=== PATIENT | female | born 1970 | race Caucasian/White ===

== ENCOUNTER 2023-03-25 16:24 | Inpatient (IN) | payer OTHER ==
[~2023-03-25] VITALS: Ht 167.6 cm; Wt 99.5 kg
[~2023-03-25 16:24] MED LIST: ANTI DEPRESSANT MED; BP MEDS; THYROID MEDS
[2023-03-25 16:31] VITALS: O2SAT 100
[2023-03-25] MEDS ORDERED: MORPHINE SULFATE 2 MG/ML CPJ (NOT FOR IM USE) IV ONE (17:00)
[2023-03-25] MEDS ORDERED: NITROGLYCERIN 0.4MG TABLET SL SL ONE (17:00)
[2023-03-25] MEDS ORDERED: SODIUM CHLORIDE 0.9% 1,000 ML IV ONE (17:00)
[2023-03-25 17:13] LABS: BASOPHILS % 0.8 % (0.0-2.0); EOSINOPHILS % 1.1 % (0.0-5.0); HEMATOCRIT. 42.4 % (36.0-48.0); HEMOGLOBIN. 14.5 g/dL (12.0-16.0); LYMPHOCYTES % 29.3 % (20.0-50.0); MEAN CORPUSCULAR HEMOGLOBIN 30.5 pg (28.0-32.0); MEAN CORPUSCULAR HGB CONC 34.2 g/dL (31.0-37.0); MEAN CORPUSCULAR VOLUME 89.4 fL (81.0-99.0); MEAN PLATELET VOLUME 8.7 fl (7.4-10.4); MONOCYTES % 9.9 % (2.0-8.0); NEUTROPHILS % 58.9 % (40.0-76.0); PLATELET 271 x1000/uL (130-400); RED BLOOD CELL COUNT 4.74 mill/uL (4.2-5.4); RED CELL DISTRIBUTION WIDTH 13.1 % (11.6-14.6); WHITE BLOOD COUNT 10.9 x1000/uL (4.5-11.0)
[2023-03-25 17:24] LABS: CHLORIDE 106 mEq/L (98-107); INDEX HEMOLYSI 1 (1-3); INDEX ICTERIC 1 (1-4); INDEX LIPEMIC 1 (1-3); POTASSIUM 3.8 mEq/L (3.5-5.1); SODIUM 138 mEq/L (136-145)
[2023-03-25 17:42] LABS: ALANINE AMINOTRANSFERASE 51 IU/L (13-61); ALBUMIN 3.5 g/dL (3.4-5.0); ASPARTATE AMINOTRANSFERASE 35 IU/L (15-37); BILIRUBIN TOTAL 0.5 mg/dL (0.1-1.0); CALCIUM 8.8 mg/dL (8.5-10.1); CARBON DIOXIDE 24 mEq/L (21-32); CREATININE 0.6 mg/dL (0.6-1.3); GLUCOSE 200 mg/dL (70-105); NT PRO B-TYPE NATRIURETIC PEP 72 pg/mL (5-125); PROTEIN TOTAL 7.4 g/dL (6.0-8.3); THYROID STIMULATING HORMONE 0.19 uIU/mL (0.36-3.74); TROPONIN I HIGH SENSITIVITY 10 ng/L (<54); UREA NITROGEN BLOOD 10 mg/dL (7-21)
[2023-03-25 19:59] LABS: TROPONIN I HIGH SENSITIVITY 12 ng/L (<54)
[2023-03-25 21:25] VITALS: BP 138/59; PULSE 90; RESP 18; TEMP 97.1
[2023-03-25] MEDS ORDERED: CLON0.2T PO (21:47)
[2023-03-25] MEDS ORDERED: ASPI-1497 MT (21:47)
[2023-03-25] MEDS ORDERED: NAPR-681 PO (21:47)
[2023-03-25] MEDS ORDERED: HYDR-3735 PO (21:47)
[2023-03-25] MEDS ORDERED: AMIT10TA6 PO (21:47)
[2023-03-25] MEDS ORDERED: AMLO10TA80 PO (21:47)
[2023-03-25] MEDS ORDERED: ATEN100T PO (21:47)
[2023-03-25] MEDS ORDERED: ESCI-7 PO (21:47)
[2023-03-25] MEDS ORDERED: LEVO150T8 PO (21:47)
[2023-03-25] MEDS ORDERED: METF-416 PO (21:47)
[2023-03-25] MEDS ORDERED: ATOR20TA65 PO (21:47)
[2023-03-25] MEDS ORDERED: DEXTROSE 50% WATER 50ML SYRINGE IV PRN (22:30)
[2023-03-25] MEDS ORDERED: CLONIDINE 0.1MG TABLET PO PRN (22:30)
[2023-03-25] MEDS ORDERED: HYDROXYZINE 25MG TABLET PO PRN (22:30)
[2023-03-25] MEDS ORDERED: ZOLPIDEM TARTRATE 5MG TABLET PO PRN (22:30)
[2023-03-25] MEDS ORDERED: ATORVASTATIN CALCIUM 40MG TABLET PO SCH (23:00)
[2023-03-25] MEDS: ACETAMINOPHEN 325MG TABLET PO PRN (23:11)
[2023-03-25] MEDS: METOPROLOL TARTRATE 50MG TABLET PO SCH (23:11)
[2023-03-25] MEDS: ENOXAPARIN 30MG/0.3ML SYR SUBCUT SCH (23:11)
[2023-03-26] VITALS: BP 117/63; PULSE 86; RESP 18; TEMP 97.9
[2023-03-26] MEDS ORDERED: AMITRIPTYLINE 50MG TABLET PO SCH
[2023-03-26 04:00] VITALS: BP 137/66; PULSE 80; RESP 18; TEMP 97.9
[2023-03-26] MEDS: INSULIN LISPRO 100 UNITS/ML SUBCUT SCH ×2 (06:37→12:48)
[2023-03-26] MEDS: BLOOD SUGAR DIAGNOSTIC STRIP TEST SCH ×2 (06:37→12:36)
[2023-03-26 07:23] LABS: BASOPHILS % 0.6 % (0.0-2.0); HEMOGLOBIN. 13.8 g/dL (12.0-16.0); LYMPHOCYTES % 35.4 % (20.0-50.0); MEAN CORPUSCULAR HEMOGLOBIN 30.8 pg (28.0-32.0); MEAN CORPUSCULAR HGB CONC 34.4 g/dL (31.0-37.0); MEAN CORPUSCULAR VOLUME 89.7 fL (81.0-99.0); MEAN PLATELET VOLUME 9.4 fl (7.4-10.4); MONOCYTES % 11.4 % (2.0-8.0); NEUTROPHILS % 50.6 % (40.0-76.0); PLATELET 230 x1000/uL (130-400); RED BLOOD CELL COUNT 4.46 mill/uL (4.2-5.4); RED CELL DISTRIBUTION WIDTH 13.1 % (11.6-14.6); WHITE BLOOD COUNT 8.2 x1000/uL (4.5-11.0)
[2023-03-26] MEDS ORDERED: LEVOTHYROXINE SODIUM 150MCG TABLET PO SCH (07:40)
[2023-03-26 07:50] LABS: CHLORIDE 108 mEq/L (98-107); INDEX HEMOLYSI 1 (1-3); INDEX ICTERIC 1 (1-4); INDEX LIPEMIC 1 (1-3); POTASSIUM 3.8 mEq/L (3.5-5.1); SODIUM 137 mEq/L (136-145)
[2023-03-26 08:00] VITALS: BP 129/70; PULSE 79; RESP 18; TEMP 97.4
[2023-03-26 08:06] LABS: ALANINE AMINOTRANSFERASE 44 IU/L (13-61); ASPARTATE AMINOTRANSFERASE 29 IU/L (15-37); BILIRUBIN TOTAL 0.4 mg/dL (0.1-1.0); CALCIUM 8.7 mg/dL (8.5-10.1); CARBON DIOXIDE 24 mEq/L (21-32); CHOLESTEROL 133 mg/dL (<200); CREATININE 0.4 mg/dL (0.6-1.3); GLUCOSE 173 mg/dL (70-105); HDL CHOLESTEROL 28 mg/dL (40-59); LDL CHOLESTEROL 69 mg/dL (5-100); PROTEIN TOTAL 6.7 g/dL (6.0-8.3); TRIGLYCERIDE 434 mg/dL (0-150); TROPONIN I HIGH SENSITIVITY 10 ng/L (<54); UREA NITROGEN BLOOD 8 mg/dL (7-21)
[2023-03-26] MEDS ORDERED: METFORMIN HCL 500MG TABLET PO SCH (08:10)
[2023-03-26] MEDS: METOPROLOL TARTRATE 50MG TABLET PO SCH (08:34)
[2023-03-26] MEDS ORDERED: AMLODIPINE 10MG TABLET PO SCH (09:00)
[2023-03-26] MEDS ORDERED: CITALOPRAM HYDROBROMIDE 10MG TABLET PO SCH (09:00)
[2023-03-26] MEDS ORDERED: ASPIRIN 81MG TABLET PO SCH (09:00)
[2023-03-26] MEDS: ACETAMINOPHEN 325MG TABLET PO PRN (11:02)
[2023-03-26] MEDS: ENOXAPARIN 30MG/0.3ML SYR SUBCUT SCH (11:03)
[2023-03-26 12:00] VITALS: BP 141/73; PULSE 82; RESP 20; TEMP 97.5
[2023-03-26 14:00] VITALS: BP 141/82; PULSE 82; RESP 20; TEMP 97.5
[2023-03-26 16:00] VITALS: BP 134/74; PULSE 80; RESP 20; TEMP 97.6
[2023-03-26] MEDS ORDERED: AMITRIPTYLINE 10MG TABLET PO SCH (21:00)
== END 2023-03-26 16:45 | disposition home or self-care (01) | DRG 313 ==
LOC: ER 16:24 → 7WST 18:34 → EDBEDREQ 18:41 → EDBEDREQTM 18:41 → ENRESERV 20:58
PROVIDERS: ADMIT Internal Medicine; ATTEND Internal Medicine
DX: R07.89 Other chest pain (principal); E11.9 Type 2 diabetes mellitus without complications; E66.9 Obesity, unspecified; Z68.35 Body mass index [BMI] 35.0-35.9, adult; E78.00 Pure hypercholesterolemia, unspecified; I10 Essential (primary) hypertension; I16.0 Hypertensive urgency; Z86.73 Personal history of transient ischemic attack (TIA), and cerebral infarction without residual deficits
CPT/HCPCS: 36415; 71045; 80053; 80061; 82962; 83036; 83880; 84443; 84484; 85025; 93005; 93306; 99285; J1650; J1815; J7030